=== PATIENT | female | born 1950 | race African-American/Black ===

== ENCOUNTER 2016-08-05 16:38 | Emergency (ER) | payer OTHER ==
[~2016-08-05] VITALS: Ht 170.2 cm; Wt 125.2 kg
[~2016-08-05 16:38] MED LIST: AMBIEN 10 MG TA10 MG PO; ASPIRIN325 PO; AZITHROMYCIN 2250 MG PO; CARVEDILOL25 MG PO; CATAPRES PO; CELEXA 10 MG TA10 M1 PO; COLESTID1 GM PO; COREG CR20 MG PO; COZAAR100 MG PO; DEMADEX20 MG PO; EFFIENT10 MG PO; FISH OIL 1,001000 M2 PO; FISH OIL 1,001000 MG PO; HCTZ PO; HUMALOG KW200 UNIT/1 SQ; HYDROCHLOROTHIA25 M1 PO; IMDUR 60 MG TAB60 M1 PO; LANTUS SQ; LANTUS SUBQ; LIPITOR80 MG PO; LISINOPRIL PO; LISINOPRIL20 MG PO; LOVASTAT40 PO; LYRICA25 PO; METOPROLOL SUCC25 M1 PO; MYFORTIC PO; NEURONTIN 300300 M1 PO; NORCO 5-325 TA1 EACH PO; NORFLEX100 MG PO; NORVASC10 MG PO; NOVOLIN R100 UNIT/1; NOVOLOG100 UNIT/1; ONDANSETRON HCL4 M2 PO; PERCOCET 10-321 EACH PO; PREDNISOLONE 5 M5 M1 PO; PREDNISONE 5 MG5 MG PO; PROGRAF1 MG PO; RESTORIL15 MG PO; SIMVASTATIN40 MG PO; TACROLIMUS1 MG PO; TOUJEO SOL300 UNIT/1 SQ
[2016-08-05 16:39] VITALS: BP 216/98
[2016-08-05] MEDS ORDERED: ERYTHROMYCIN E3.5 G3 OPHTHALMIC (17:42)
== END 2016-08-05 17:55 | disposition home or self-care (01) ==
LOC: ER 16:38
DX: S05.01XA Injury of conjunctiva and corneal abrasion without foreign body, right eye, initial encounter (principal); I50.9 Heart failure, unspecified; E11.9 Type 2 diabetes mellitus without complications; I25.2 Old myocardial infarction; M17.11 Unilateral primary osteoarthritis, right knee; Z99.2 Dependence on renal dialysis; Z94.0 Kidney transplant status; Z88.0 Allergy status to penicillin; W50.4XXA Accidental scratch by another person, initial encounter; Y93.89 Activity, other specified; Y92.89 Other specified places as the place of occurrence of the external cause; Y99.8 Other external cause status

== ENCOUNTER 2018-02-27 11:39 | Inpatient (IN) | payer OTHER ==
[~2018-02-27] VITALS: Ht 170.2 cm; Wt 106.6 kg
[~2018-02-27 11:39] MED LIST changes: +ADRENALIN1 MG/1 M1 INJECTION; -ASPIRIN325 PO; +ASPIRIN81 M2 PO; +ATIVAN0.5 MG PO; +BISACODYL SUPP10 MG RECTAL; +CLONIDINE0.1 PO; +COREG25 MG PO; +CYMBALTA20 MG PO; +ERYTHROMYCIN E3.5 G3 OPHTHALMIC; +HYDRALAZINE HC100 MG PO; +ISORDIL40 M1 PO; +LANTUS100 UNIT/M SUBQ; +LEVAQUIN 500 M500 M2 PO; +LIDOPATCH1 EACH TRANSDERM; +MIRALAX17 GM PO; +MYCOPHENOLIC A180 MG PO; +NOVOLOG100 UNIT/1 SUBQ; +PRED FORTE 1% EY5 M1 OPHTHALMIC; +SENOKOT-S1 TA2 PO; +SINGULAIR 10 MG10 M1 PO; +TEST STRIPS1 EACH SUBQ; +THERAGRAN-M PR1 EAC1 PO; -TOUJEO SOL300 UNIT/1 SQ
[2018-02-27 11:41] VITALS: BP 134/86
[2018-02-27 12:15] LABS: HEMATOCRIT 37.5 % (37.0-47.0); HEMOGLOBIN 12.2 gm/dL (12.0-15.0); MCH 27.5 pg (26.0-34.0); MCHC 32.6 g/dL (28.0-37.0); MCV 84.5 fL (80.0-100.0); PLATELET COUNT 285 thou/uL (150-400); RBC 4.44 mil/uL (4.20-5.00); RDW 18.3 % (10.5-14.5); WBC 25.6 thou/uL (4.0-11.0)
[2018-02-27 12:21] LABS: CALCIUM 9.6 mg/dL (8.5-10.1); CREATININE 5.7 mg/dL (0.6-1.0); POTASSIUM 3.6 mmol/L (3.5-5.1)
[2018-02-27 12:27] LABS: ALBUMIN 3.5 g/dL (3.4-5.0); TOTAL BILIRUBIN 1.1 mg/dL (<0.1-1.0); TOTAL PROTEIN 7.3 g/dL (6.4-8.2)
[2018-02-27 12:57] LABS: ABSOLUTE NEUTROPHILS 23.3 thou/uL (1.4-8.2); ANISOCYTOSIS 1+; BURR CELLS OCCASIONAL; LARGE PLATELETS OCCASIONAL; METAMYELOCYTES 1 %; OVALOCYTES FEW; POIKILOCYTOSIS 1+
[2018-02-27 14:11] VITALS: BP 152/70
[2018-02-27 14:23] VITALS: BP 136/64
[2018-02-27 15:43] VITALS: BP 144/40
[2018-02-27 16:39] LABS: TSH 3.141 uIU/mL (0.358-3.740)
--- NOTE | 2018-02-27 17:50 | NUR ---
PT RECEIVED TO RM 457 AT 1445 FROM THE ER ALERT AND NO ACUTE DISTRESS. PT ADMITTED TO UNIT. C/O ABD PAIN IN LUQ W/ SHARP,INTERMITTENT PAINS. MED GIVEN W/SOME RELIEF. CONSULTS TO RENAL AND GI.
[2018-02-27 19:27] VITALS: BP 159/73
[2018-02-28 01:05] LABS: URINE BILIRUBIN NEGATIVE (Negative); URINE BLOOD 2+ (Negative); URINE CLARITY CLEAR; URINE COLOR YELLOW; URINE GLUCOSE-RANDOM* NEGATIVE (Negative); URINE KETONES NEGATIVE (Negative); URINE PROTEIN (DIPSTICK) NEGATIVE (Negative); URINE SPECIFIC GRAVITY <= 1.005 (1.005-1.035); URINE UROBILINOGEN 0.2 E.U./dl (0.2-1.0)
[2018-02-28 01:06] LABS: URINE LEUKOCYTES-REFLEX 2+ (Negative); URINE NITRITE-REFLEX POSITIVE (Negative)
[2018-02-28 01:15] LABS: CASTS None Seen /LPF (None Seen); MUCUS None Seen strn/LPF (None Seen); SQUAMOUS >10 Many /LPF (0-3); URINE RBC 3-10 Few /HPF (0-2); URINE WBC-REFLEX 6-15 Few /HPF (0-5)
[2018-02-28 01:16] LABS: CRYSTALS None Seen /LPF (None Seen)
[2018-02-28 03:46] VITALS: BP 172/76
--- NOTE | 2018-02-28 04:14 | NUR ---
ASSUMED CARE AT 1900, ASSESSMENT COMPLETED. PT C/O SIGNIFICANT PAIN GENERALIZED ACROSS ABD-HAVE GIVEN PERCOCET ONCE AND DILAUDID ONCE SO FAR, DENIES NAUSEA OR DIARRHEA. DENIES SOB, STARTED ON CPAP TONIGHT AND IS ON CONT PULSE OX; PT POORLY TOLERATING CPAP,TAKES OFF FREQ, SAT OCCASIONALLY DROPPING TO 89% THEN BACK UP TO MID 90'S. HS BLOOD SUGAR 163, HELD LISPRO, GAVE 15 UNITS OF LANTUS PT HAS NOT BEEN EATING ANYTHING. 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 OBTAINED URINE SPECIMEN, WHICH THIS AM RESULTED POSITIVE FOR UTI. ENCOURAGING PO INTAKE, BUT SO FAR PT HAS ONLY WANTED WATER AND NO OTHER CLEAR LIQUIDS. EXPECT PT TO HAVE DIALYSIS TODAY. NO OTHER CONCERNS, WILL CONTINUE TO MONITOR.
[2018-02-28 06:03] LABS: HEMATOCRIT 38.3 % (37.0-47.0); HEMOGLOBIN 12.1 gm/dL (12.0-15.0); MCH 26.9 pg (26.0-34.0); MCHC 31.6 g/dL (28.0-37.0); MCV 85.1 fL (80.0-100.0); RBC 4.5 mil/uL (4.20-5.00); RDW 18.1 % (10.5-14.5); WBC 20.1 thou/uL (4.0-11.0)
[2018-02-28 06:13] LABS: CALCIUM 9.6 mg/dL (8.5-10.1); CREATININE 6.1 mg/dL (0.6-1.0); MAGNESIUM 2.5 mg/dL (1.8-2.4); POTASSIUM 4.3 mmol/L (3.5-5.1)
[2018-02-28 07:10] VITALS: BP 170/85
[2018-02-28 12:30] LABS: URINE BLOOD 2+ (Negative); URINE CLARITY CLEAR; URINE COLOR YELLOW; URINE GLUCOSE-RANDOM* NEGATIVE (Negative); URINE KETONES TRACE (Negative); URINE LEUKOCYTES-REFLEX NEGATIVE (Negative); URINE NITRITE-REFLEX NEGATIVE (Negative); URINE PROTEIN (DIPSTICK) 2+ (Negative); URINE SPECIFIC GRAVITY 1.025 (1.005-1.035); URINE UROBILINOGEN 0.2 E.U./dl (0.2-1.0)
[2018-02-28 12:33] LABS: ICTOTEST (BILI CONFIRMATORY) Negative (Negative); URINE BILIRUBIN NEGATIVE (Negative)
[2018-02-28 13:05] LABS: AMORPHOUS URATES Few /LPF (None Seen); CASTS None Seen /LPF (None Seen); SQUAMOUS 0-3 Few /LPF (0-3)
[2018-02-28 13:06] LABS: BACTERIA-REFLEX 1-9 Few /HPF (None Seen); URINE RBC 0-2 Rare /HPF (0-2); URINE WBC-REFLEX 0-5 Rare /HPF (0-5)
--- NOTE | 2018-02-28 18:10 | NUR ---
PT ASSESSED AT START OF SHIFT. STILL HAVING A LOT OF ABD PAIN BUT BETTER W/ PERCOCET. IV RESTARTED PER IV NURSE UNABLE TO FIND VEIN. IV ANTIBIOTIC CHANGED PER DR. SUMNER. PT WILL HAVE COLON PREP THIS EVENING FOR COLONOSCOPY TOMORROW.
[2018-02-28 19:27] VITALS: BP 172/76
[2018-03-01 04:29] VITALS: BP 128/55
[2018-03-01 05:45] LABS: HEMATOCRIT 34.1 % (37.0-47.0); HEMOGLOBIN 11.1 gm/dL (12.0-15.0); MCHC 32.6 g/dL (28.0-37.0); MCV 82.6 fL (80.0-100.0); RBC 4.13 mil/uL (4.20-5.00); RDW 17.6 % (10.5-14.5); WBC 15.3 thou/uL (4.0-11.0)
[2018-03-01 05:58] LABS: CALCIUM 9.2 mg/dL (8.5-10.1); MAGNESIUM 2.4 mg/dL (1.8-2.4); POTASSIUM 3.8 mmol/L (3.5-5.1)
[2018-03-01 06:00] LABS: CREATININE 4.7 mg/dL (0.6-1.0)
--- NOTE | 2018-03-01 06:00 | NUR ---
Pt. c/o abdominal pain and was given po pain med (see emar) with some relief noted. She has had loose stools during the night from bowel prep, but not clear.
--- NOTE | 2018-03-01 07:35 | NUR ---
Pt. rested quietly at intervals during the night when checked on during frequent rounds. She offers no c/o pain or discomfort. Assisted up to the bedside comode with assistance of one. Bed alarm is on.
[2018-03-01 07:58] VITALS: BP 153/69
--- NOTE | 2018-03-01 10:54 | NUR ---
Received pt on NPO for colonoscopy today, consent obtained. Pt is still having liquid still but not clear. Pt complained of pain in the abdominal area, medication given. Still maintained on npo.
[2018-03-01 11:19] VITALS: BP 153/69
--- NOTE | 2018-03-01 11:52 | 2DMMODE ---
[facility] [address] [facility] [place] [address] 2 D/M-MODE ECHOCARDIOGRAM Name: MAGALIE HEMPHILL Room #: 457-P ADM IN M.R.#: [id number] Admission: 02/27/18 Attend Phys: Jeremy Meade, Discharge: Date of : 48 Date of Service: 03/01/18 1152 Report #: [id number] THIS REPORT FOR: //name// APPROVED REPORT Study performed: 03/01/2018 08:10:44 EXAM: Comprehensive 2D, Doppler, and color-flow Echocardiogram Patient Location: Bedside Room #: 457 Status: routine BSA: 2.22 HR: 72 bpm BP: 128/55 mmHg Rhythm: NSR Other Information Study Quality: Adequate Indications Diabetes CAD Hypertension/HDD PFO noted in prior study 2D Dimensions RVDd: 50.06 mm IVSd: 12.45 (7-11mm) LVOT Diam: 23.99 (18-24mm) LVDd: 55.97 mm PWd: 12.02 (7-11mm) Ascending Ao: 39.84 (22-36mm) LVDs: 41.62 (25-40mm) Aortic Root: 34.40 mm IVC: 32.00 mm Volumes Left Atrial Volume (Systole) Single Plane 4CH: 61.89 mL Single Plane 2CH: 82.81 mL LA ESV Index: 34.88 mL/m2 Aortic Valve AoV Peak Gavin.: 1.24 m/s AO Peak Gr.: 6.14 mmHg LVOT Max P.66 mmHg LVOT Max V: 0.96 m/s MARÍA Vmax: 3.49 cm2 [facility] [address] [address] 2 D/M-MODE ECHOCARDIOGRAM Name: MAGALIE HEMPHILL Room #: 457-P [facility] IN ..#: [id number] Admission: 02/27/18 Attend Phys: Jeremy Meade, Discharge: Date of : 48 Date of Service: 03/01/18 1152 Report #: [id number] Mitral Valve E/A Ratio: 1.2 MV Decel. Time: 236.37 ms MV E Max Gavin.: 1.32 m/s MV A Gavin.: 1.14 m/s MV Max Gavin.: 5.95 m/s MV Mean Gavin.: 4.65 m/s MV PHT: 68.55 ms IVRT: 115.34 ms Pulmonary Valve PV Peak Gavin.: 0.89 m/s PV Peak Gr.: 3.18 mmHg Tricuspid Valve TR Peak Gavin.: 3.47 m/s RAP Estimate: 15.00 mmHg TR Peak Gr.: 48.16 mmHg PA Pressure: 63.00 mmHg Left Ventricle The left ventricle is normal size. Mild concentric left ventricular hypertrophy. Left ventricular systolic function is mildly decreased. LVEF is 40-45%.worse inferior Moderate diastolic dysfunction is present (pseudonormal filling). Right Ventricle Right ventricle is at the upper limits of normal. The right ventricular systolic function is normal. Atria Left atrium is dilated. The right atrium size is normal. Aortic Valve Aortic valve is calcified. Mild aortic regurgitation. There is no aortic valvular stenosis. Mitral Valve There is moderate mitral annular calcification. Moderate mitral regurgitation. No evidence of mitral valve stenosis. Tricuspid Valve The tricuspid valve is normal in structure. Mild tricuspid regurgitation. Estimated PAP of 63 mmHg. Pulmonic Valve Pulmonic valve is not well visualized. Mild pulmonic regurgitation. [address] [address] 2 D/M-MODE ECHOCARDIOGRAM Name: MAGALIE HEMPHILL Room #: 457-P [facility] IN M.R.#: [id number] Admission: 02/27/18 Attend Phys: Jeremy Meade, Discharge: Date of : 48 Date of Service: 03/01/18 1152 Report #: [id number] Great Vessels The aortic root is normal in size. Ascending aorta is dilated. IVC is dilated and collapses <50% with inspiration. Pericardium There is no pericardial effusion. <Conclusion> The left ventricle is normal size. Mild concentric left ventricular hypertrophy. LVEF is 40-45%.worse inferior Moderate diastolic dysfunction is present (pseudonormal filling). Right ventricle is at the upper limits of normal. Left atrium is dilated. Aortic valve is calcified. Mild aortic regurgitation. There is moderate mitral annular calcification. Moderate mitral regurgitation. Mild tricuspid regurgitation. Estimated PAP of 63 mmHg. The aortic root is normal in size. There is no pericardial effusion. <ELECTRONICALLY SIGNED> By: Heladio Colbert MD, FACC 03/01/18 1152 115 115 Heladio Colbert MD, FACC /INF
--- NOTE | 2018-03-01 12:05 | HC ---
[facility] [place] [address] CONSULTATION Name: ANNEL CHAVIRAMAGALIE BARROSO Room #: 457-P ADM IN M.R.#: [id number] Admission: 02/27/18 Attend Phys: Jeremy Meade MD Discharge: Date of : 48 Report #: [id number] THIS REPORT FOR: //name// CC: Jeremy Duque DATE OF SERVICE: 02/28/2018 TYPE OF REPORT: Infectious diseases consultation. REASON FOR CONSULTATION: I was asked to evaluate concerning streptococcal bacteremia, sepsis and renal transplantation and on treatment for rejection. HISTORY OF PRESENT ILLNESS: The patient was a 67-year old with end-stage renal disease, underwent cadaveric renal transplant in 2007. In July of this past year, she suffered acute rejection, antibody mediated. She was treated then from her baseline of prednisone and tacrolimus to the addition of Myfortic and combination of IVIG, plasmapheresis and increased prednisone dose. Later, she had the addition of Rituxan added. Since then, she has remained on 3-drug immunosuppression. The dose of her prednisone is not totally clear to me, suspecting 5 mg a day, although when she left in November, was 50 mg a day. She presents now with acute onset of abdominal pain, left lower quadrant predominant. Intermittent nausea with some reflux symptoms. She has been more constipated and having loose stools. Her pain she reports as significant mostly in the left lower quadrant to mid lower abdomen. A persistent aching pain. Some exacerbations when she moves. She has had no diarrhea. She tends to be more constipated. She has not had stool in the last 4 days. She has small volume of output. Her left lower quadrant renal transplant graft site has remained tender. She states the pain, however, is deeper in nature and different than her previous rejection pain. She has had temperature up to 99.6. There has been no chills or sweats. REVIEW OF SYSTEMS: Notes no headache, cough or sputum production. She has had no rashes. There has been minimal urine output. She has lower abdominal discomfort with no radicular features described. No other endocrine, , lymphs, skin, neurologic, psychiatric issues. Full 10-point systems review as noted above with no further additions. ALLERGIES: PENICILLIN, WHICH she states has bleeding, although she does tolerate cephalosporins. MEDICATIONS: As noted on her MAR including Levaquin and metronidazole. PAST MEDICAL HISTORY: Hypertension, end-stage renal disease, cardiomyopathy, diabetes, coronary artery disease, appendectomy, hysterectomy, renal transplant [address] [address] CONSULTATION Name: ANNEL CHAVIRAMAGALIE BARROSO Room #: 457-P [facility] IN M.R.#: [id number] Admission: 02/27/18 Attend Phys: Jeremy Meade MD Discharge: Date of : 48 Report #: [id number] and left AV graft. She has had a previous toe amputation. Rejection episode as noted above with coronary artery disease, she has had several stents placed. Obstructive sleep apnea. FAMILY HISTORY: Hodgkin's lymphoma, seizure disorder and coronary artery disease. SOCIAL HISTORY: Past smoker, no significant alcohol intake. No HIV risk factors. No history of hepatitis. PHYSICAL EXAMINATION: VITAL SIGNS: Afebrile and hemodynamically stable. GENERAL: She was alert, cooperative and pleasant, on hemodialysis currently. She appeared her stated age. She was -[place] and obese. HEENT: Without scleral icterus. No conjunctivitis. No oral lesions. NECK: Supple, with no thyromegaly or mass. SKIN: Without rash or decubitus. Lymph nontender. LYMPHATIC: No palpable lymphadenopathy. LUNGS: Clear. HEART: Regular, without murmur, gallop or rub. ABDOMEN: Obese, soft and tenderness mostly in the left lower quadrant. She had discomfort when I laid the bed back in recumbent position. No guarding or rebound. No appreciable mass was identified. No hepatosplenomegaly. RECTAL: Not performed. MUSCULOSKELETAL: Abdomen was tender laterally as well as in the left flank region. She also noted tenderness in her buttock region and upper thigh. I could not identify any specific rash. There was no cellulitis. There was no other skin lesions. She did have some induration, edema involving her lower extremities. Lumbar spine was tender in the lower region. Straight leg raising causes some pain in her buttock and back region on the left. Mild discomfort straight leg raising on the right. Left upper extremity AV graft site was unremarkable and was accessed. No cyanosis or clubbing noted in her extremities. She had 1+ edema in the lower extremities. NEUROLOGICAL: Cranial nerves intact. Strength and sensation was normal in the upper and lower extremities. Mood was normal. LABORATORY STUDIES DICTATION ENDS ABRUPTLY HERE. <ELECTRONICALLY SIGNED> By: Dusty Barros MD 03/01/18 1205 1603 0012 Dusty Barros MD /nt
[2018-03-01] MEDS ORDERED: ROBAXIN500 MG PO (13:34)
[2018-03-01] MEDS ORDERED: HYDRALAZINE 5050 MG PO (13:34)
[2018-03-01] MEDS ORDERED: LISINOPRIL10 MG PO (13:34)
[2018-03-01] MEDS ORDERED: RENAL-VITE TAB0.8 MG PO (13:35)
--- NOTE | 2018-03-01 15:24 | NUR ---
PT ADMITTED RELATED TO ABD PAIN, COLITIS, LUKOCYTOSOS. CM REVIEWED CHART AND SPOKE WITH CARE TEAM. CM MET WITH PT AT BEDSIDE THIS DAY. PT IS A&O X4. CM ROLE INTORUDED. PT INDICATED SHE LIVES IN A TOWNHOUSE WITH HER SPOUSE WITH 4 STEPS TO ENTER AND NO STEPS INSIDE. 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 PT HAD USED A CANE AT TIMES. PT HAS A CPAP FOR HOME USE. PT DOES DIALYSIS AT [facility]. PT ANTICIPATES RETURNING HOME ONCE MEDICALLY STABLE. CM TO FOLLOW INDICATED WITH DC PLANNING.
[2018-03-01 20:23] VITALS: BP 144/62
--- NOTE | 2018-03-02 02:15 | NUR ---
PT UP MOST OF THE NIGHT FROM BOWEL PREP PT GIVEN PAIN MEDICINE ONCE DURING THE SHIFT PT NPO SINCE MIDNIGHT PT USED CALL LIGHT EFFECTIVELY.
[2018-03-02 03:27] VITALS: BP 150/65
[2018-03-02 05:12] LABS: HEMATOCRIT 35.9 % (37.0-47.0); HEMOGLOBIN 11.5 gm/dL (12.0-15.0); MCH 26.9 pg (26.0-34.0); MCHC 32.1 g/dL (28.0-37.0); MCV 83.8 fL (80.0-100.0); RBC 4.29 mil/uL (4.20-5.00); RDW 17.7 % (10.5-14.5); WBC 12.3 thou/uL (4.0-11.0)
[2018-03-02 05:28] LABS: CALCIUM 9.6 mg/dL (8.5-10.1); MAGNESIUM 2.7 mg/dL (1.8-2.4); POTASSIUM 3.8 mmol/L (3.5-5.1)
[2018-03-02 05:38] LABS: CREATININE 5.7 mg/dL (0.6-1.0)
[2018-03-02 07:40] VITALS: BP 161/64
--- NOTE | 2018-03-02 07:41 | NUR ---
TAP WATER ENEMA GIVEN STOOL IS STARTING TO CLEAR UP STILL ALOT OF PARTICULATE MATTER.
[2018-03-02 15:33] VITALS: BP 170/79
--- NOTE | 2018-03-02 18:48 | NUR ---
ASSUMED CARE AT 0700. AXOX2. DIALYSIS TODAY. COLONOCOPY TODAY. POLYPS REMOVED AND BIOPSY TAKEN. HIGH BP, GAVE BP MEDS AND PAIN MEDS. GAVE VANCO AND MEROPENEN. PAIN MANAGED WITH OXY AND DILAUDID. DIET RESUMED TO [facility] WITH RENAL. FAMILY AT BEDSIDE ALL THE TIME. WILL CONT TO MONITOR ANY CHANGES.
[2018-03-02 19:10] VITALS: BP 124/88
[2018-03-02 19:45] VITALS: BP 150/85
--- NOTE | 2018-03-03 02:32 | NUR ---
PT WAS ABLE TO GET A FEW HOURS OF SLEEP DURING THE NIGHT PT USED CALL LIGHT EFFECTIVELY NO ISSUES OVERNIGHT.
[2018-03-03 04:04] VITALS: BP 150/69
[2018-03-03 06:42] VITALS: BP 146/79
[2018-03-03 07:15] VITALS: BP 164/63
[2018-03-03 10:43] LABS: HEMATOCRIT 37.8 % (37.0-47.0); HEMOGLOBIN 12.1 gm/dL (12.0-15.0); MCH 26.6 pg (26.0-34.0); MCHC 31.9 g/dL (28.0-37.0); MCV 83.5 fL (80.0-100.0); RBC 4.53 mil/uL (4.20-5.00); RDW 17.4 % (10.5-14.5); WBC 8.3 thou/uL (4.0-11.0)
[2018-03-03 11:03] LABS: CALCIUM 9.3 mg/dL (8.5-10.1); CREATININE 5.4 mg/dL (0.6-1.0); MAGNESIUM 2.4 mg/dL (1.8-2.4); POTASSIUM 3.7 mmol/L (3.5-5.1)
[2018-03-03 17:20] VITALS: BP 139/65
[2018-03-03 19:11] VITALS: BP 155/77
--- NOTE | 2018-03-03 19:22 | NUR ---
ASSUMED CARE AT 0700, SHIFT ASSESSMENT DONE, MEDS GIVEN, VSS. FSBS THIS AM WAS < 19. 2 APPLE JUICE AND 1 VIAL OF D50. BLOOD SUGAR CAME UP TO 121 AT 1004, DR SANTILLAN AWARE. REPORTED PAIN, PRN PAIN MEDS GIVEN. ORDER RECEVIED TO TRANSFER PATIENT TO SENIOR SUITES. REPORT GIVEN TO NURSE. TRANSFER COMPELTED.
--- NOTE | 2018-03-03 20:09 | NUR ---
PATIENT TRANSFERRED FROM [facility], REPORT FROM [facility]. PATIENT ALERT AND ORIENTED X 4. WILL REPORT OFF TO THE NIGHTSHIFT. PATIENT UP WITH ASSIST 1-2 TO BSC. WILL CONTINUE TO MONITOR.
--- NOTE | 2018-03-04 05:18 | NUR ---
ASSUMED CARE OF PATIENT AT 1899. ASSESSMENT COMPLETED AT 2049 AND IS DOCUMENTED. PRN PERCOCET GIVEN FOR C/O LEFT LOWER BACK PAIN WITH DESIRED EFFECT ACHIEVED. PT WORE BIPAP THROUGHOUT THE NIGHT AND SLEPT VERY SOUNDLY. D/T PT'S BLOOD SUGAR DROPPING YESTERDAY MORNING, PT WAS GIVEN A SANDWICH TO EAT BEFORE GETTING LANTUS. PT'S WAS STILL CONCERNED ABOUT PT'S BLOOD SUGAR DROPPING, SO PT REQUESTED BS BE TAKEN AT 02 & 04. PT'S BLOOD SUGAR AT THESE TIMES WERE 160 AND 133, RESPECTIVELY. PT DID NOT WAKE UP WHEN BS WAS TAKEN. PT HAS +2 PITTING EDEMA IN BLE. ABD TTP IN LOWER QUADS. PT ABLE TO VERBALIZE NEEDS APPROPRIATELY. AT BEDSIDE THROUGHOUT THE NIGHT. CALL LIGHT AND PERSONAL ITEMS WITHIN REACH. BED LOCKED AND IN LOWEST POSITION. WCTM.
--- NOTE | 2018-03-04 05:50 | NUR ---
THIS NURSE AGREES WITH CARE AND MEDICATION GIVEN DURING THE NIGHT FROM [facility]. PATIENT RESTING QUIETLY, WILL MONITOR. AT BEDSIDE THROUGHOUT THE NIGHT. BS MONITORED CLOSELY.
[2018-03-04 06:41] VITALS: BP 128/58
[2018-03-04 07:33] LABS: HEMATOCRIT 35.1 % (37.0-47.0); HEMOGLOBIN 11.4 gm/dL (12.0-15.0); MCHC 32.4 g/dL (28.0-37.0); MCV 83.5 fL (80.0-100.0); RBC 4.21 mil/uL (4.20-5.00); RDW 17.5 % (10.5-14.5); WBC 8.3 thou/uL (4.0-11.0)
[2018-03-04 07:46] LABS: CALCIUM 9.2 mg/dL (8.5-10.1); MAGNESIUM 2.4 mg/dL (1.8-2.4); POTASSIUM 3.7 mmol/L (3.5-5.1)
[2018-03-04 07:47] LABS: CREATININE 6.7 mg/dL (0.6-1.0)
[2018-03-04 08:14] VITALS: BP 119/52
--- NOTE | 2018-03-04 14:49 | NUR ---
ASSUMED CARE OF PATIENT THIS MORNING. PATIENT COMPLAINTS OF LOWER BACK PAIN ON HER RIGHT SIDE WITH NO CURRENT RELIEF FROM THE PAIN MEDICATIONS THAT WERE GIVEN THIS MORNING BEFORE HER CT SCAN. PAIN MEDICATION WAS GIVEN AWHILE AGO, WILL RE-EVALUATE PATIENT'S PAIN. SHE IS UP WITH MAXIMUM ASSIST BUT HAS NOT GOTTEN OUT OF BED TODAY, SHE ONLY TRANSFERRED WITH A SLIDING BOARD ONTO A CART FOR HER SCAN. PATIENT IS AN ACCUCHECK AC/HS. AND HAS NOT RECEIVED ANY INSULIN THIS MORNING, OR THIS AFTERNOON. SHE IS ON ROOM AIR WIH A CONTINUOUS OXYGEN SATURATION MONITOR ON. SHE WEARS CPAP AT NIGHT. SHE HAS A LEFT UPPER ARM FISTULA FOR DIALYSIS WHICH SHE RECEIVED . SHE ALSO HAS A R. FOREARM IV. PATIENT IS CURRENTLY SITTING IN BED. WITH CALL LIGHT WITHIN REACH. SHE CALLS OUT APPROPRIATELY FOR ASSISTANCE.
[2018-03-04 16:40] VITALS: BP 177/108
[2018-03-04 18:25] VITALS: BP 148/76
[2018-03-04 21:07] VITALS: BP 162/89
--- NOTE | 2018-03-05 04:34 | NUR ---
Pt A/O3-4,able to make needs known.Sitting at the edge of the bed at shift change,assisted back to bed AX2.Pt states she uses a walker when she is able to ambulate and a BSC for BM's but pt hasn't requested to get up this shift. VSS.BS 108,lantus administered as ordered and snacks given to pt. C/o back, medicated with Percocet with partial relief reported,dilaudid 1mg administered and pt verbalized relief.Pt resting quietly at this time CPAP on no distress noted. Will continue to monitor pt.
[2018-03-05 06:08] VITALS: BP 150/81
[2018-03-05 08:00] VITALS: BP 183/81
[2018-03-05 08:35] LABS: HEMOGLOBIN 11.4 gm/dL (12.0-15.0); MCH 27.1 pg (26.0-34.0); MCHC 32.5 g/dL (28.0-37.0); MCV 83.5 fL (80.0-100.0); RBC 4.2 mil/uL (4.20-5.00); RDW 17.5 % (10.5-14.5); WBC 9.3 thou/uL (4.0-11.0)
[2018-03-05 09:12] LABS: CREATININE 7.4 mg/dL (0.6-1.0); MAGNESIUM 2.4 mg/dL (1.8-2.4); POTASSIUM 3.9 mmol/L (3.5-5.1)
--- NOTE | 2018-03-05 11:20 | HC ---
[facility] [place] [address] CONSULTATION Name: ANNEL CHAVIRAMAGALIE SOSABETH Room #: 222-P ADM IN M.R.#: [id number] Admission: 02/27/18 Attend Phys: Jeremy Meade MD Discharge: Date of : 48 Report #: [id number] THIS REPORT FOR: //name// CC: Jeremy Duque DATE OF SERVICE: 02/28/2018 REASON FOR CONSULTATION: End-stage renal disease, on dialysis. HISTORY OF PRESENT ILLNESS: The patient is well known to our service from a [facility] in October of this year. She has a longstanding end-stage renal disease, was on dialysis for several years, had a kidney transplant for 10 years, 2007, eventually developed acute rejection, antibody mediated, was treated with high dose immunosuppressive several times, has been dialysis dependent since October or before of this year, has remained on 3-drug immunosuppression relatively high doses up to this point despite the fact that she has made very little urine over several months' time. She now presents with worsening abdominal pain and tenderness, some nausea and vomiting and volume overload. Last dialyzed 2 days ago. She dialyzes at, I believe, a [facility] in [place]. PAST MEDICAL HISTORY: Very complex and prolonged, but mostly remarkable for the end-stage renal disease as well as diabetes mellitus, the acute rejection antibody mediated, receiving heavy courses of immunosuppression including IVIG, plasmapheresis, 3-drug treatment. I do not believe she ever did receive rituximab, but that is unclear. She also has obstructive sleep apnea, on CPAP. She has had previous cardiorespiratory arrest with CPR during one of her dialysis or after one of her dialysis treatments. She has had longstanding severe hypertension, coronary artery disease and she has had multiple heart stents placed in the past as well. She also had a previous appendectomy, exploratory laparotomy, hysterectomy, bilateral salpingo-oophorectomy, kidney transplant in the left lower quadrant. FAMILY HISTORY: Positive for coronary artery disease. Mother had Hodgkin disease. SOCIAL HISTORY: Lives in [place]. No substantial cigarettes or alcohol. REVIEW OF SYSTEMS: GENERAL: She has been feeling quite poorly last couple of days. EYES: Her vision is alright. ENT: Hearing okay. No mouth sores. ENDOCRINE: Positive for the diabetes. RESPIRATORY: She is a bit short winded. CARDIAC: No current chest pain. [facility] [address] [place] [address] CONSULTATION Name: ANNEL CHAVIRAMAGALIE Room #: 222-P [facility] IN M.R.#: [id number] Admission: 02/27/18 Attend Phys: Jeremy Meade MD Discharge: Date of : 48 Report #: [id number] GASTROINTESTINAL: She has very severe diffuse abdominal pain with some vomiting. GENITOURINARY: Makes very little in the way of urine. PSYCHIATRIC: No psychiatric problems. NEUROLOGIC: No history of seizure, syncope or stroke. PHYSICAL EXAMINATION: GENERAL: This is a somewhat overweight patient. She is in quite a bit of distress with very severe abdominal pain. SKIN: Otherwise, unremarkable. SKELETAL: Shows her to be very obese. HEENT: Extraocular movements are full. No scleral icterus. Hearing and vision are intact. Mucous membranes dry. NECK: Veins are not distended. CHEST: Shows crackles at the bases. HEART: Regular. ABDOMEN: Very tender. There are bowel sounds present. This is diffuse tenderness. I do believe there is some rebound as well. EXTREMITIES: Show 2+ peripheral edema with some toe amputations noted. LABORATORY DATA: Hemoglobin 12.1, the white count yesterday 25.6 with 12% bands, platelets 232. Sodium 129, potassium 4.3, chloride 91, bicarbonate 25, creatinine 6.1. No phosphorus. AST and ALT are low. ASSESSMENT AND PLAN: 1. End-stage renal disease from volume overload, will require dialysis today with ultrafiltration. 2. Abdominal pain with gram-positive cocci in chains in her blood. She has bacteremia, severe diffuse abdominal pain, diagnosis of colitis from CT scan. Unclear as to whether this is also a surgical abdomen. Does not appear to be a kidney rejection. 3. Kidney transplant, on high dose 3-drug immunosuppression. We will try to taper that back as she clearly is not recovering renal function, is quite immunosuppressive, suppressed in the presence of her sepsis. 4. Diabetes mellitus. 5. History of severe hypertension. 6. Obstructive sleep apnea, on CPAP. <ELECTRONICALLY SIGNED> By: Heladio Carbajal MD 03/05/18 1120 1040 1210 Heladio Carbajal MD /nt
--- NOTE | 2018-03-05 12:58 | NUR ---
ASSUMED CARE OF PATIENT AT 0715, PATIENT ALERT AND ORIENTED X 4. PATIENT UP WITH MAX ASSIST, WITH ROLLER WALKER. PATIENT C/O PAIN WITH BACK AREA, 11/13. PATIENT GIVEN OXYCODONE 1 TABLET DURING DIALYSIS, ALL AM MEDICATIONS ON HOLD UNTIL AFTER DIALYSIS. PATIENT GETTING DIALYSIS THIS AM. PATIENT HAS LEFT UPPER ARM FISTULA, PATIENT HAS RIGHT AC IV IN PLACE, FLUSHED WITH NS AND REMAINS PATENT. PATIENT RECEIVED HYDROMORPHONE 1 MG IV ALSO DURING DIALYSIS, WITH PARTIAL RELIEF. DIALYSIS WENT WELL, 3.3 LITERS OFF WITH LAST B/P 176/87. PATIENT WENT FOR MRI OF SPINE. PHSICAL THERAPY WORKED WITH PATIENT, SHE TOOK 5 STEPS, WITH ROLLER WALKER TO THE CHAIR. WILL CONTINUE TO MONITOR.
[2018-03-05 19:46] VITALS: BP 182/76
--- NOTE | 2018-03-06 05:29 | NUR ---
PATIENT ALERT AND ORIENTED X4. IV IN RAC. GETS UP WITH ASSIST OF TWO. C/O PAIN IN BACK, MED GIVEN. DIALYSIS M/W/F. PUTS OUT SMALL AMOUT OF URINE. BLOOD SUGAR WAS 178. RECIEVED 8UNITS SHORT ACTING AND 35 UNITS LONG ACTING. HAD A SNACK BEFORE THE INSULIN WAS GIVEN.SLEPT MOST OF NIGHT.
[2018-03-06 07:30] LABS: CALCIUM 8.9 mg/dL (8.5-10.1); MAGNESIUM 2.3 mg/dL (1.8-2.4); POTASSIUM 4.4 mmol/L (3.5-5.1)
[2018-03-06 07:34] LABS: CREATININE 5.4 mg/dL (0.6-1.0)
[2018-03-06 07:38] LABS: HEMATOCRIT 36.3 % (37.0-47.0); HEMOGLOBIN 11.8 gm/dL (12.0-15.0); MCH 27.1 pg (26.0-34.0); MCHC 32.5 g/dL (28.0-37.0); MCV 83.3 fL (80.0-100.0); RBC 4.35 mil/uL (4.20-5.00); RDW 17.8 % (10.5-14.5); WBC 8.7 thou/uL (4.0-11.0)
[2018-03-06 09:36] VITALS: BP 158/80
--- NOTE | 2018-03-06 16:17 | NUR ---
ASSUMED PT CARE AT 0700H. PT HAS NO S/S OF DISTRESS. PT A&O X4. PT STATES STATES PAIN AT THE R BACK. PT TOLERAATED MEDS. PT ABLE TO USE BEDSIDE COMMODE. PT ABLE TO AMBULATE TO BEDSIDE CHAIR. PT GLU EARIER WAS 42. PT HAD TABS AND JUICES. CURRENTLY GLU 91. CONSULT PHYSICIAN. NEW ORDERS RECEIVED AND ACKNOWLEDGED. PT EARLIER BP 158/80, AFTER MEDS CURRENT BP 141/63. PT L ARM FISTULA HAS A BRUIT AND THRILL. PT R AC DRESSING CHANGED AND FLUSHING WELL. PT CALL LIGHT AND PERSONAL BELONGINGS WITHIN REACH. PT CONTINUES TO BE MONITORED FOR SAFETY.
[2018-03-06 20:22] VITALS: BP 161/75
[2018-03-07 06:13] VITALS: BP 141/82
[2018-03-07 07:13] LABS: HEMATOCRIT 34.6 % (37.0-47.0); HEMOGLOBIN 11.1 gm/dL (12.0-15.0); MCH 26.7 pg (26.0-34.0); MCHC 32.2 g/dL (28.0-37.0); MCV 83.1 fL (80.0-100.0); RBC 4.17 mil/uL (4.20-5.00); RDW 17.6 % (10.5-14.5); WBC 7.9 thou/uL (4.0-11.0)
[2018-03-07 07:33] LABS: CALCIUM 9.2 mg/dL (8.5-10.1); CREATININE 6.6 mg/dL (0.6-1.0); MAGNESIUM 2.3 mg/dL (1.8-2.4); POTASSIUM 4.3 mmol/L (3.5-5.1)
--- NOTE | 2018-03-07 07:50 | NUR ---
PATIENT CARE WAS ASSUMED AT 0715.PATIENT IS ALERT AND ORIENTED X4.PATIENT HAS IV INTACT AND SALINE LOCKED.PATIENT HAS PAIN 6/10 AFTER PAIN MEDS WERE GIVEN.PATIENT IS RESTING IN BED.PT IS ABLE TO AMBULATE WITH X2 ASSIST WITH WALKER.CALL LIGHT, PHONE, AND PERSONAL BELONGINGS ARE WITHIN REACH.WILL CONTINUE TO MONITOR PATIENT.
--- NOTE | 2018-03-07 07:55 | NUR ---
PATIENT BLOOD SUGAR WAS 39.PATIENT WAS NOT SYMPTOMATIC.PATIENT WAS GIVEN 3 GLUCOSE TABS, SOME JUICE,AND GRAMHAM CRACKERS.PATIENT'S BLOOD WILL BE RECHEKED.DOCTOR WAS NOTIFIED, AND WAS OKAY WITH PROTOCAL THAT WAS DONE.PATIENT WAS OFFERED GLUCOSE GEL,PATIENT REFUSED GEL.
[2018-03-07 08:30] VITALS: BP 152/73
--- NOTE | 2018-03-07 08:30 | NUR ---
BLOOD SUGAR WAS RECHECKED AND WAS 68.PATIENT'S BREAKFAST ARRIVED WILL RECHECK BLOOD SUGAR AFTER PATIENT HAS EATEN.ALL INSULIN WAS HELD.
--- NOTE | 2018-03-07 11:07 | PATH ---
[facility] [place] [address] PATHOLOGY RPT PROCEDURE Name: YOANA HEMPHILL Room #: 222-P ADM IN M.R.#: [id number] Admission: 02/27/18 Date of : 48 Discharge: Report #: [id number] Path Case #: [id number] [facility] Accession Number: [id number] . 01 Material submitted: . PART A: POLYP AT ASCENDING COLON X 5 PART B: POLYP AT CECUM PART C: RANDOM L COLON BX . 01 Clinical history: . Pre-OP DX: Colitis Post-OP DX: Colon polyp, cecal polyp . 02 Diagnosis: A. Polyp x5, at ascending colon, endoscopic biopsy: - Tubulovillous adenoma identified in all fragments sampled. - Negative for high-grade dysplasia. . B. Polyp, at cecum, endoscopic biopsy: - Tubular adenoma. - Negative for high-grade dysplasia. . C. Large intestinal mucosa, random left colon, endoscopic biopsy: - Hyperplastic changes. - Negative for active cryptitis. - Negative for microscopic colitis. - Negative for ischemic colitis. - Negative for dysplasia or malignancy. . 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 02 Electronically signed: . Adriana Goode MD, Pathologist NPI- [id number] . 01 Gross description: . A. Received in formalin labeled "Yoana Hemphill, polyp at ascending colon x5," are multiple segments of ceballos soft tissue measuring 2.1 x 0.9 x 0.3 cm in aggregate dimensions. The specimen is filtered and entirely submitted in cassette A1. . B. Received in formalin labeled "Yoana Hemphill, polyp at cecum," are 2 segments of ceballos soft tissue measuring 1.5 x 0.3 x 0.2 cm in aggregate dimensions and ranging from 0.3 to 1.4 cm in maximum dimension. The specimen is submitted entirely in cassette B1. . [address] [address] PATHOLOGY RPT PROCEDURE Name: YOANA HEMPHILL [place] [place] Room #: 222-P [facility] IN M.R.#: [id number] Admission: 02/27/18 Date of : 48 Discharge: Report #: [id number] Path Case #: [id number] C. Received in formalin labeled "Yoana Hemphill, random left colon BX," are multiple segments of ceballos soft tissue measuring 0.9 x 0.3 x 0.1 cm in aggregate dimensions. The specimen is filtered and entirely submitted in cassette C1. (TSD; 03/02/2018) TOB/TOB . 02 Pathologist provided ICD-10: D12.2, D12.0, K52.9 . 02 CPT . 489634, 507906, 109192 Specimen Comment: A courtesy copy of this report has been sent to Specimen Comment: [phone], , . Specimen Comment: Report sent to ,DR TORRES / DR SANTILLAN Specimen Comment: A duplicate report has been generated due to demographic updates. Performed at: [address], [place] [id number] MD Gregory Oliva MD Phone: [phone] Performed at: [address] [id number] MD Adriana Goode MD Phone: [phone]
--- NOTE | 2018-03-07 12:51 | NUR ---
Patient blood sugar was 68.Patient was given 2 glucose tabs, and juice patient doesn't want gel at this time.Patient has lunch, but was given a snack with protein.Will recheck blood sugar.
[2018-03-07] MEDS ORDERED: LANTUS100 UNIT/M SUBQ (15:03)
[2018-03-07] MEDS ORDERED: ROCEPHIN 11 GM/1001 IV (15:04)
[2018-03-07 15:38] VITALS: BP 152/73
[2018-03-07 15:41] VITALS: BP 152/73
[2018-03-07 15:44] VITALS: BP 152/73
--- NOTE | 2018-03-07 16:01 | NUR ---
dp faxed dc paperwork to [facility] and also Outpatient Infusion, here at [facility]. PT to [facility] today.
--- NOTE | 2018-03-07 17:13 | NUR ---
rec orders for out patient infusion. Faxed to [facility] infusion clinic and sp with patient who dializes at [facility] t/th/mon early shift, finished approx 1045. She is agreeable to outpatient infusion but interested in 1230 timeframe. [facility] in infusion clinic rec referral and orders initially she reports looks good to go. patient ready to dc, called [facility] who reports they do not take patients insurance. Sp with Dr Barros plan to inquire into [facility]. Faxed referral to [facility] who reports prior auth is not done by them it is rec from Infectious Disease phys office. At this time unable to obtain prior auth for infusion. Updated phys and RN.
[2018-03-07 19:48] VITALS: BP 159/87
--- NOTE | 2018-03-08 04:07 | NUR ---
PATIENT ALERT AND ORIENTED X4. AV SHUNT IN [place] HAS GOOD BRUI AND THRILL. ACCUCHECK WAS 74 AT 2104. STEPHEN CRACKERS AND ORANGE JUICE GIVEN. AT 2154 IT WAS 107. WILL HAVE DIALYSIS TOMORROW AND THEN PROBABLY GO HOME AFTERWARDS. GETS UP WITH ASSIST OF ONE. PLUMBING IN THE BATH ROOM IS MESSED UP. PATIENT AND FAMILY AWARE OF THIS. NO ODOR NOTED IN ROOM AND NO MESS NOTED. ASKED PATIENT AND FAMILY IF THEY MINDED STAYING IN ROOM FOR THE NIGHT WITH THE PROBLEM. THEY BOTH SAID THEY DID NOT MIND STAYING. INFORMED THEM THAT THEY COULD NOT USE THE BATHROOM. THE PATIENT USES THE BSC ANYWAY AND THE FAMILY MEMBER CAN USE THE RESTROOM IN THE CANALES. BOTH AGREED TO THIS, PATIENT SLEPT MOST OF THE NIGHT.
[2018-03-08 07:25] VITALS: BP 156/81
--- NOTE | 2018-03-08 09:00 | NUR ---
ASSUMED PT CARE AT 0700. ASSESSED PT AT 0725. PT AWAKE, ALERT/ORIENTED X4. REPORTS PAIN IN ABDOMEN RADIATING TO BACK RATED 5/10, DECREASED SINCE PAIN MED. GIVEN. ASSESSMENT IS CHARTED, VITAL SIGNS STABLE. BLOOD SUGAR CHECKED AND FOUND TO BE 68. 4 OZ APPLE JUICE GIVEN. RECHECKED BS AT 0750 AND FOUND TO BE 68. GLUCOSE GEL GIVEN AT THIS TIME. RECHECKED AGAIN AT 0825 AND BS WAS 83. WILL CONTINUE TO MONITOR. PT RECEIVING DIALYSIS AT THIS TIME. NO OTHER CONCERNS.
[2018-03-08] MEDS ORDERED: ROCEPHIN 11 GM/1001 IV (09:08)
[2018-03-08] MEDS ORDERED: TACROLIMUS1 MG PO (09:08)
--- NOTE | 2018-03-08 09:45 | NUR ---
Followup: diet advanced and tolerating fairly well but some low BG levels. Pt had indicated not eating well at home, decreased appetite and has lost some wt but able to accurately quantify as "had so much fluid on me". Wt hx reviewed in [facility], down 35 lb since October (15 lb over this admit). Discharge pending today. Reviewed healthy eating habits, and use of Nepro or oral supplement 1-2 x daily until appetite improves. Pt visits with dietitian at dialysis frequently so encouraged to follow up with them.
[2018-03-08 09:50] VITALS: BP 152/73
--- NOTE | 2018-03-08 10:19 | NUR ---
ON-GOING ASSESSMENT: PT IS STABLE FOR DISCHARGE BUT NEEDING OUTPATIENT INFUSION FOR IV ANBX AND WILL NEED PRIOR AUTH PRIOR TO [facility] ACCEPTING AT THEIR OUTPATIENT INJUSION. CM CONTACTED UR CONTACT KIMMY MARTINEZ [phone] TO ASK IF SHE GIVES INSURANCE AUTH. SHE STATED SHE DOES NOT BUT IN ORDER TO GET IT THE ORDER MUST BE FAXED TO [phone] AND THAT TEAM WILL WORK ON THE AUTHORIZATION. CM REQUESTED THAT THIS REQUEST BE EXPEDITED DUE TO PATIENT BEING STABLE FOR DISCHARGE. CM WILL CONTINUE TO FOLLOW.
[2018-03-08 13:41] VITALS: BP 152/73
--- NOTE | 2018-03-08 14:25 | NUR ---
DISCHARGE INSTRUCTIONS GIVEN TO PT. IV IN PLACE, WILL SEND PT HOME WITH SITE. VITAL SIGNS STABLE. PT CALLING [id number] TO PICK HER UP.
[2018-03-08 14:30] VITALS: BP 143/77
--- NOTE | 2018-03-08 14:51 | NUR ---
DR PRIEST REPORTS PATIENT TO HAVE ASIF ASSISTANCE AT [facility] FOR OUTPATIENT INFUSION. SP WITH CHARLY IN OUTPATIENT INFUSION WHO IS AGREEABLE. PATIENT TO HAVE 10:00 APT AT OUT PATIENT INFUSION IN AM. UPDATED PATIENTS DTR IN LAW OF ABOVE PLAN. SHE IS IN AGREEMENT. PATIENT DIALIZES T,TH,SAT AT [facility]. UPDATED CLINIC OF MS AND FAXED PERTINENT INFORMATION. CHARLY IN OUTPAITENT CLINIC AWARE PATIENT DIALIZES AND PREFERENCE FOR NEW TIME FOR PATIENT DUE TO DIALYSIS.CHARLY TO WORK WITH PATIENT FOR ANOTHER TIME AFTER TOMORROW. NO FURTHER NEEDS
== END 2018-03-08 15:59 | disposition home or self-care (01) | DRG 871 ==
LOC: ER 11:39 → EROBS 13:35 → 4W 13:35 → SICU 03-03 19:00 → ENTRNSPT 03-08 15:44 → EDTRNSPTSTS 03-08 15:47 → SICU 03-08 15:59
PROVIDERS: Nurse Practitioner Acute Care; Physician Assistant; ADMIT Internal Medicine
PROC: 5A1D70Z Performance of Urinary Filtration, Intermittent, Less than 6 Hours Per Day (ICD-10-PCS; principal; 2018-02-28)
PROC: 0DBK8ZZ Excision of Ascending Colon, Via Natural or Artificial Opening Endoscopic (ICD-10-PCS; 2018-03-02)
PROC: 0DBH8ZZ Excision of Cecum, Via Natural or Artificial Opening Endoscopic (ICD-10-PCS; 2018-03-02)
PROC: 0DBE8ZX Excision of Large Intestine, Via Natural or Artificial Opening Endoscopic, Diagnostic (ICD-10-PCS; 2018-03-02)
PROC: 5A1D70Z Performance of Urinary Filtration, Intermittent, Less than 6 Hours Per Day (ICD-10-PCS; 2018-03-02)
PROC: 5A1D70Z Performance of Urinary Filtration, Intermittent, Less than 6 Hours Per Day (ICD-10-PCS; 2018-03-05)
PROC: 5A1D70Z Performance of Urinary Filtration, Intermittent, Less than 6 Hours Per Day (ICD-10-PCS; 2018-03-08)
DX: A40.9 Streptococcal sepsis, unspecified (principal); N18.6 End stage renal disease; J13 Pneumonia due to Streptococcus pneumoniae; E87.1 Hypo-osmolality and hyponatremia; I42.9 Cardiomyopathy, unspecified; A04.9 Bacterial intestinal infection, unspecified; Z94.0 Kidney transplant status; I13.2 Hypertensive heart and chronic kidney disease with heart failure and with stage 5 chronic kidney disease, or end stage renal disease; I50.9 Heart failure, unspecified; M17.11 Unilateral primary osteoarthritis, right knee; I25.10 Atherosclerotic heart disease of native coronary artery without angina pectoris; E87.70 Fluid overload, unspecified; G47.33 Obstructive sleep apnea (adult) (pediatric); E66.01 Morbid (severe) obesity due to excess calories; K63.5 Polyp of colon; F41.1 Generalized anxiety disorder; M48.061 Spinal stenosis, lumbar region without neurogenic claudication; D12.0 Benign neoplasm of cecum; D12.2 Benign neoplasm of ascending colon; M16.11 Unilateral primary osteoarthritis, right hip; E11.22 Type 2 diabetes mellitus with diabetic chronic kidney disease; Z88.0 Allergy status to penicillin; I25.2 Old myocardial infarction; Z95.5 Presence of coronary angioplasty implant and graft; Z87.891 Personal history of nicotine dependence; Z90.710 Acquired absence of both cervix and uterus; Z90.722 Acquired absence of ovaries, bilateral; Z82.49 Family history of ischemic heart disease and other diseases of the circulatory system; Z80.7 Family history of other malignant neoplasms of lymphoid, hematopoietic and related tissues; Z90.49 Acquired absence of other specified parts of digestive tract; Z89.429 Acquired absence of other toe(s), unspecified side; Z79.82 Long term (current) use of aspirin; Z79.899 Other long term (current) drug therapy; Z68.36 Body mass index [BMI] 36.0-36.9, adult
CPT/HCPCS: 10045; 15000; 15002; 32100; 62110; 62900; 70005

== ENCOUNTER → 2018-03-09 | Outpatient (CLI) | payer OTHER, SELFPAY ==
[~2018-03-09] MED LIST changes: +HYDRALAZINE 5050 MG PO; +LISINOPRIL10 MG PO; +RENAL-VITE TAB0.8 MG PO; +ROBAXIN500 MG PO; +ROCEPHIN 11 GM/1001 IV
[2018-03-09 10:10] VITALS: BP 149/60
--- NOTE | 2018-03-09 15:58 | NUR ---
IN FOR CEFTRIAXONE INFUSION FOR BACTEREMIA. PATIENT HAD PERIPHERAL IV PLACED YESTERDAY AN INPATIENT IN [facility]. FLUSHED EASILY. TOLERATED INFUSION WELL WITH NO ADVERSE REACTION NOTED. ADMISSION HISTORY AND ASSESSMENT COMPLETED. PATIENT'S DTR ACCOMPANIED PATIENT. INSTRUCTIONS GIVEN FOR WEEKEND INFUSIONS. DISMISSED IN STABLE CONDITION.
== END ==
LOC: OPONC 10:27
DX: R78.81 Bacteremia (principal)
CPT/HCPCS: 95000

== ENCOUNTER → 2018-03-10 | Outpatient (CLI) | payer OTHER, SELFPAY | LOC: OPONC 12:56 | DX: R78.81 Bacteremia (principal) | CPT/HCPCS: 95000 ==

== ENCOUNTER → 2018-03-11 | Outpatient (CLI) | payer OTHER, SELFPAY | LOC: OPONC | DX: R78.81 Bacteremia (principal) | CPT/HCPCS: 95000 ==

== ENCOUNTER → 2018-03-12 | Outpatient (CLI) | payer OTHER, SELFPAY ==
[2018-03-12 11:26] LABS: HEMATOCRIT 33.3 % (37.0-47.0); HEMOGLOBIN 11.2 gm/dL (12.0-15.0); MCH 27.8 pg (26.0-34.0); MCHC 33.5 g/dL (28.0-37.0); MCV 83.1 fL (80.0-100.0); RBC 4.01 mil/uL (4.20-5.00); RDW 18.1 % (10.5-14.5); WBC 8.8 thou/uL (4.0-11.0)
[2018-03-12 11:33] LABS: CALCIUM 9.3 mg/dL (8.5-10.1); POTASSIUM 4.1 mmol/L (3.5-5.1)
[2018-03-12 11:39] LABS: ALBUMIN 2.9 g/dL (3.4-5.0); TOTAL BILIRUBIN 0.7 mg/dL (<0.1-1.0)
[2018-03-12 12:51] VITALS: BP 163/72
--- NOTE | 2018-03-12 12:54 | NUR ---
IN FOR DAILY CEFTRIAXONE INFUSION. STATED FEELING BETTER WITH LESS BACK PAIN. TOLERATED INFUSION WITHOUT INCIDENT. IV TEAM STARTED SALINE LOCK IN [facility]. DR. SUMNER VISITED. PATIENT TO CONTINUE INFUSIONS THROUGH MONDAY AND THEN RETURN IN 1 WEEK FOR BLOOD CULTURES. SCHEDULED TO RETURN TOMORROW. DISMISSED IN STABLE CONDITION.
== END ==
LOC: OPONC
PROVIDERS: Specialist
DX: R78.81 Bacteremia (principal)
CPT/HCPCS: 95000

== ENCOUNTER 2018-03-13 11:56 | Emergency (ER) | payer OTHER ==
[~2018-03-13] VITALS: Ht 170.2 cm; Wt 107.5 kg
[2018-03-13 13:46] LABS: CREATININE 2.1 mg/dL (0.6-1.0)
[2018-03-13 13:48] LABS: POTASSIUM 2.4 mmol/L (3.5-5.1)
[2018-03-13 13:49] LABS: CALCIUM 5.4 mg/dL (8.5-10.1)
[2018-03-13 13:52] LABS: ALBUMIN 1.6 g/dL (3.4-5.0); TOTAL BILIRUBIN 0.4 mg/dL (<0.1-1.0); TOTAL PROTEIN 4.2 g/dL (6.4-8.2)
[2018-03-13 14:34] LABS: HEMATOCRIT 34.1 % (37.0-47.0); HEMOGLOBIN 11.4 gm/dL (12.0-15.0); MCH 27.6 pg (26.0-34.0); MCHC 33.4 g/dL (28.0-37.0); MCV 82.5 fL (80.0-100.0); PLATELET COUNT 479 thou/uL (150-400); RBC 4.14 mil/uL (4.20-5.00); RDW 17.8 % (10.5-14.5); WBC 8.2 thou/uL (4.0-11.0)
[2018-03-13 14:48] LABS: INR 1.1
[2018-03-13 14:59] LABS: ABSOLUTE NEUTROPHILS 6.2 thou/uL (1.4-8.2)
[2018-03-13 16:32] VITALS: BP 181/79
== END 2018-03-13 16:33 | disposition short-term general hospital (02) ==
LOC: ER 11:56
PROVIDERS: Physician Assistant
DX: I71.9 Aortic aneurysm of unspecified site, without rupture (principal); I71.01 Dissection of thoracic aorta; E87.6 Hypokalemia; E83.51 Hypocalcemia; M54.5 Low back pain; E11.9 Type 2 diabetes mellitus without complications; I50.9 Heart failure, unspecified; M17.11 Unilateral primary osteoarthritis, right knee; M16.11 Unilateral primary osteoarthritis, right hip; M46.96 Unspecified inflammatory spondylopathy, lumbar region; Z79.4 Long term (current) use of insulin; Z87.891 Personal history of nicotine dependence; Z88.0 Allergy status to penicillin

== ENCOUNTER → 2018-03-13 | Outpatient (CLI) | payer OTHER, SELFPAY ==
--- NOTE | 2018-03-13 12:41 | NUR ---
IN FOR DAILY CEFTRIAXONE INFUSION. PATIENT TEARFUL DUE TO SEVERE LOWER BACK PAIN. PATIENT STATED IT IS THROBBING. PATIENT UNABLE TO SIT UP STRAIGHT. REMAINED IN WHEELCHAIR FOR INFUSION. TOLERATED INFUSION WELL WITH NO ADVERSE REACTION NOTED. SALINE LOCKED IV. ENCOURAGED PATIENT TO GO TO ED TO GET SOME HELP WITH PAIN CONTROL. PATIENT THINKS THE PAIN IS DUE TO ARTHRITIS BUT HAS NEVER HURT THIS BAD BEFORE. DISMISSED VIA WC TO ED. ACCOMPANIED BY DTR.
== END ==
LOC: OPONC 00:36
DX: R78.81 Bacteremia (principal)
CPT/HCPCS: 95000